=== PATIENT | female | born 1995 | race Two or more races ===

== ENCOUNTER 2021-06-25 09:48 | Day surgery (SDC) | payer OTHER ==
[~2021-06-25 09:48] MED LIST: PEPCID PO
== END 2021-06-25 20:00 | disposition home or self-care (01) ==
LOC: CIR.AMB 09:48 → U 09:48 → CIR.AMB 10:45
PROVIDERS: ATTEND Specialist
DX: Z30.432 Encounter for removal of intrauterine contraceptive device (principal); Z86.16 Personal history of COVID-19

== ENCOUNTER 2022-08-15 10:00 | Outpatient (CLI) | payer OTHER ==
[2022-08-15] MEDS ORDERED: PRENATAL TABLE1 EAC1 PO (10:12)
[2022-08-15] MEDS ORDERED: INTEGRA PLUS C1 EACH PO (10:12)
[2022-08-15] MEDS ORDERED: CHILDREN'S ASPI81 MG PO (10:13)
== END 2022-08-16 11:35 | disposition home or self-care (01) ==
LOC: OBS/DEL 10:00
PROVIDERS: ATTEND Specialist
DX: O33.3XX0 Maternal care for disproportion due to outlet contraction of pelvis, not applicable or unspecified (principal); O46.8X3 Other antepartum hemorrhage, third trimester; Z3A.34 34 weeks gestation of pregnancy

== ENCOUNTER 2022-08-18 11:49 | Inpatient (IN) | payer OTHER ==
[~2022-08-18] VITALS: Ht 175.3 cm; Wt 61.7 kg
[~2022-08-18 11:49] MED LIST changes: +CHILDREN'S ASPI81 MG PO; +INTEGRA PLUS C1 EACH PO; +PRENATAL TABLE1 EAC1 PO
== END 2022-08-21 18:03 | disposition home or self-care (01) | DRG 805 ==
LOC: OBS/DEL 11:49 → OB/GYN 13:55 → LDR 13:55 → OB/GYN 22:05
PROVIDERS: ADMIT Specialist; ATTEND Specialist
PROC: 10E0XZZ Delivery of Products of Conception, External Approach (ICD-10-PCS; principal; 2022-08-18)
PROC: BY4FZZZ Ultrasonography of Third Trimester, Single Fetus (ICD-10-PCS; 2022-08-18)
PROC: 4A1HXCZ Monitoring of Products of Conception, Cardiac Rate, External Approach (ICD-10-PCS; 2022-08-18)
DX: O60.14X0 Preterm labor third trimester with preterm delivery third trimester, not applicable or unspecified (principal); O41.1230 Chorioamnionitis, third trimester, not applicable or unspecified; Z37.0 Single live birth; O41.1430 Placentitis, third trimester, not applicable or unspecified; Z3A.34 34 weeks gestation of pregnancy; Z20.822 Contact with and (suspected) exposure to COVID-19